=== PATIENT | male | born 1970 | race Caucasian/White ===

== ENCOUNTER 2018-02-03 15:01 | Emergency (ER) | payer MEDICAID ==
[2018-02-03] MEDS: HYDROCODONE/APAP (10/325) TAB PO (16:08)
== END 2018-02-03 16:58 | disposition home or self-care (01) ==
LOC: FTE 15:01
DX: M54.5 Low back pain (principal); E11.9 Type 2 diabetes mellitus without complications; Z79.4 Long term (current) use of insulin
CPT/HCPCS: 72100; 99284-25

== ENCOUNTER 2018-02-06 12:38 | Emergency (ER) | payer MEDICAID | END 2018-02-06 14:31 | disposition home or self-care (01) | LOC: FTE 12:38 | DX: K59.00 Constipation, unspecified (principal); E11.9 Type 2 diabetes mellitus without complications; Z79.4 Long term (current) use of insulin | CPT/HCPCS: 99283; Z7502 ==

== ENCOUNTER 2018-04-05 09:54 | Emergency (ER) | payer MEDICAID | END 2018-04-05 12:48 | disposition home or self-care (01) | LOC: FTE 09:54 | DX: E11.9 Type 2 diabetes mellitus without complications (principal); Z79.4 Long term (current) use of insulin | CPT/HCPCS: 82962; 99282 ==

== ENCOUNTER 2019-01-17 10:04 | Emergency (ER) | payer SELFPAY, MEDICAID ==
[2019-01-17] MEDS: KETOROLAC 30 MG INJ IM (11:05)
[2019-01-17 11:13] LABS: URINE BLOOD (Dip) POC Negative (NEGATIVE); URINE KETONES (Dip) POC Negative (NEGATIVE); URINE LEUKOCYTE EST (Dip) POC Negative (NEGATIVE); URINE NITRITE (Dip) POC Negative (NEGATIVE); URINE TOTAL PROTEIN POC Negative (NEGATIVE)
[2019-01-17 11:13] LABS: URINE PH (Dip) POC 7.5 (5.0-8.5)
== END 2019-01-17 11:49 | disposition home or self-care (01) ==
LOC: FTE 11:49
DX: M62.830 Muscle spasm of back (principal); E11.9 Type 2 diabetes mellitus without complications; Z79.4 Long term (current) use of insulin
CPT/HCPCS: 81003; 82962; 96372; 99284-25